=== PATIENT | female | born 1960 | race Caucasian/White ===

== ENCOUNTER 2024-11-07 17:06 | Emergency (ER) | payer OTHER, SELFPAY ==
--- NOTE | ~2024-11-07 | XR_ITS ---
[id number] Ordering provider: Krystin Spence NP History: . chest pain . Comparison: None. FINDINGS: BONES: No acute left rib fracture or fracture of the visualized osseous structures. LEFT LUNG: No effusions or infiltrates. No pneumothorax. SOFT TISSUES: Normal. IMPRESSION: No left rib fracture. No acute cardiopulmonary pathology. Reviewed, dictated and finalized at location A. [facility]
--- NOTE | 2024-11-07 17:11 | ED_ITS ---
HPI - Chest Pain General Chief Complaint: Chest Pain Stated Complaint: chest pain Time Seen by Provider: 11/07/24 17:25 Source: patient Mode of arrival: ambulatory Limitations: no limitations History of Present Illness HPI narrative: 63-year-old female presents concern for left chest pain. Reports it has been there about a week and has been getting worse. Reports movement makes it worse, lying on her left side makes it worse. She reports it hurts worse to cough. She denies shortness of breath. She denies any known injury. She denies bruising, swelling, redness, rash. She reports she takes medicine for heartburn and has been taking that as usual MD complaint: chest pain Related Data Allergies Allergy/AdvReac Type Severity Reaction Status Date / Time No Known Allergies Allergy Verified 11/07/24 17:26 Review of Systems Review of Systems: CONSTITUTIONAL: Denies malaise, chills, sweats, or fever. EYES: Denies visual changes, redness, or discharge. ENT: Denies rhinorrhea, congestion, sinus pain, otalgia or sore throat. CARDIOVASCULAR: Reports chest pain. Denies palpitations or edema. RESPIRATORY: Denies cough or dyspnea. Reports left chest pain GASTROINTESTINAL: Denies abdominal pain, nausea, vomiting, diarrhea, bloody, or mucous stools. GENITOURINARY: Denies dysuria or hematuria. SKIN: Denies rash or itching. MUSCULOSKELETAL: Denies back pain, joint pain, or myalgia. NEUROLOGIC: Denies numbness, weakness, or headache. PSYCHIATRIC: Denies anxiety or depression. All systems reviewed & are unremarkable except as noted in HPI and below PMFSH Family History Family History (Updated 06/03/16 @ 23:19 by DOCTOR UNKNOWN) Sibling Family history of malignant neoplasm of cervix, Onset Age: 55 Family history of lymphoma, Onset Age: 38 Family history of malignant neoplasm of breast in first degree relative, Onset Age: 46 Grandparent Family history of pancreatic cancer Father Family history of lung cancer Comments At time of signature, agree with nursing past medical, surgical, social and family history. There is no relevant family history pertinent to the presenting complaint Exam Narrative: GENERAL: Well-appearing, well-nourished, and in no acute distress. HEAD: Normocephalic, atraumatic. EYES: PERRLA, sclera clear, and EOMI. No nystagmus. ENT: Nares clear. Mucous membranes moist. NECK: Supple. CHEST: No respiratory distress. Clear to auscultation. No bony deformities, no asymmetry. Speaks in full sentences. HEART: Regular rate and rhythm. No murmur heard. Normal peripheral pulses. ABDOMEN: Soft, nontender, nondistended, normal active bowel sounds, no palpable masses. Chest wall tenderness under the left breast EXTREMITIES: Normal range of motion. No edema. Normal strength and sensation. SKIN: Warm, dry, no visible rash. NEURO: Alert and oriented x3. PSYCH: Normal mood and affect Course Course Emergency Course: EKG is normal, chest x-ray is normal, patient was given GI cocktail which did not improve her pain. Patient's pain is reproducible with palpation on the left breast. Will treat for chest wall pain with follow-up with patient's primary Patient is aware of, understands and agrees to treatment plan. Anticipatory guidance given. Patient agrees to follow-up as directed and is aware of reasons to seek care at the emergency department. Portions of this record may have been created with voice recognition software Level of Care: Express Care Visit Vital Signs Vital signs: Vital Signs Temperature 99.4 F 11/07/24 17:12 Pulse Rate 97 11/07/24 17:12 Respiratory Rate 18 11/07/24 17:12 Blood Pressure 137/77 11/07/24 17:12 Pulse Oximetry 99 11/07/24 17:12 Oxygen Delivery Room Air 11/07/24 17:12 Temperature 99.4 F 11/07/24 17:12 Pulse Rate 97 11/07/24 17:12 Respiratory Rate 18 11/07/24 17:12 Blood Pressure 137/77 11/07/24 17:12 Pulse Oximetry 99 11/07/24 17:12 Oxygen Delivery Room Air 11/07/24 17:12 Reviewed. MDM - Chest Pain MDM Narrative Medical decision making narrative: I evaluated this patient in [facility] care. History is obtained from patient who is an independent historian and physical exam was performed.? Available [place] dical records were reviewed. ? Exam findings and relevant testing show no acute concerns or changes; patient is non-toxic appearing and is in no distress. ? Differential diagnosis and treatment plan were discussed with the patient. Patient agrees with discussion and after shared medical decision making agrees with plan of care. All questions were answered to the patient's satisfaction. Patient is appropriate for outpatient treatment and follow-up. Differential Diagnosis Differential diagnosis: Likely fracture of rib, pneumothorax, atypical chest pain, costochondritis, chest pain and biliary colic Imaging Data My impression: Images reviewed, interpreted by radiologist, agree, see report. Radiologist's impression: [id number] Ordering provider: Krystin Spence NP History: . chest pain . Comparison: None. FINDINGS: BONES: No acute left rib fracture or fracture of the visualized osseous structures. LEFT LUNG: No effusions or infiltrates. No pneumothorax. SOFT TISSUES: Normal. IMPRESSION: No left rib fracture. No acute cardiopulmonary pathology. ECG Data EKG #1: ECG completion date: 11/07/24 ECG completion time: 17:23 Prior ECG tracings: not available for review Interpretation: Rate, 88, AK interval 138, QRS duration 83 EKG Interpretation: normal rate and sinus rhythm Critical Care Time Critical Care Time Critical Care Time: No Discharge Plan Discharge Clinical Impression: Chest wall pain Patient Disposition: Home, Self-Care Condition: Stable Instructions: Chest Wall Pain (ED) Additional Instructions: 1) Please follow-up with your primary care doctor in the next 1-2 days. 2) If you have any worsening of symptoms or any other urgent concerns please go to the ER. 3) Please take medications as prescribed and continue taking your home medications as usual. 4) Please read and follow information included in discharge instructions. Patient Language: Slovak Prescriptions: New cyclobenzaprine 10 mg tablet 10 mg PO TID PRN (Reason: muscle spasm) Qty: 20 0RF ibuprofen 600 mg tablet 600 mg PO QID PRN (Reason: pain) Qty: 30 0RF Follow-up/Referrals: UNKNOWN,DOCTOR [Non-Staff] - Time of Disposition: 18:58
[2024-11-07 17:12] VITALS: BP 137/77; PULSE 97; RESP 18; TEMP 37.4; O2SAT 99
--- NOTE | 2024-11-07 17:17 | ECG_ITS ---
Test Date: 2024-11-07 17:23:00 Measurements Intervals [place] Rate: 88 P: 61 [place]: 138 QRS: 57 QRSD: 83 T: 51 QT: 360 QTc: 436 Interpretive Statements SINUS RHYTHM WARNING: DATA QUALITY MAY AFFECT INTERPRETATION No previous ECG available for comparison Electronically Signed On 11-11-2024 14:36:42 [employer] by Yo Murcia M.D.
[2024-11-07] MEDS: LIDOCAINE 2% VISC SOLN 15 ML UDC PO (17:30)
[2024-11-07] MEDS: MAG HYDROX/AL HYDROX/SIMETH 30 ML UDC 15 ML PO (17:30)
== END 2024-11-07 19:03 | disposition home or self-care (01) ==
PROVIDERS: Emergency Provider Nurse Practitioner
DX: R07.89 Other chest pain (principal)
CPT/HCPCS: 71101; 93005; 99213; A9270; G0463